=== PATIENT | male | born 1965 | race Caucasian/White ===

== ENCOUNTER 2019-06-05 19:43 | Emergency (ER) | payer MEDICAID ==
[~2019-06-05] VITALS: Ht 175.3 cm; Wt 94.8 kg
[2019-06-05 19:48] VITALS: Ht 175.3 cm; Wt 94.8 kg
[2019-06-05 21:07] VITALS: BP 118/81
== END 2019-06-05 21:07 | disposition home or self-care (01) ==
LOC: ED 19:43
DX: S01.81XA Laceration without foreign body of other part of head, initial encounter (principal); W22.8XXA Striking against or struck by other objects, initial encounter; Y93.89 Activity, other specified; Y92.89 Other specified places as the place of occurrence of the external cause; Y99.8 Other external cause status; F41.9 Anxiety disorder, unspecified; F17.210 Nicotine dependence, cigarettes, uncomplicated

== ENCOUNTER 2019-12-29 15:45 | Emergency (ER) | payer MEDICAID ==
[~2019-12-29] VITALS: Ht 175.3 cm; Wt 94.8 kg
[2019-12-29 15:59] VITALS: BP 121/78; Ht 175.3 cm; Wt 94.8 kg
== END 2019-12-29 20:35 | disposition home or self-care (01) ==
LOC: ED 15:45
DX: T78.40XA Allergy, unspecified, initial encounter (principal); L50.9 Urticaria, unspecified; J06.9 Acute upper respiratory infection, unspecified; B37.0 Candidal stomatitis; I10 Essential (primary) hypertension; F41.9 Anxiety disorder, unspecified; X58.XXXA Exposure to other specified factors, initial encounter
CPT/HCPCS: J2930; Q0163